=== PATIENT | male | born 1995 | race Caucasian/White ===

== ENCOUNTER 2016-06-04 22:55 | Emergency (ER) | payer SELFPAY ==
[~2016-06-04] VITALS: Ht 180.3 cm; Wt 77.7 kg
[2016-06-04 23:03] VITALS: Ht 180.3 cm; Wt 77.7 kg
[2016-06-05] MEDS ORDERED: HYDROCODONE/APAP (5/325) TAB PO ONE (01:00)
[2016-06-05] MEDS ORDERED: IBUP-1542 PO ×2 (01:08→03:09)
--- NOTE | 2016-06-05 01:09 | ERD ---
ER Documentation Chief Complaint Date/Time DATE: 06/05/16 TIME: 01:05 Chief Complaint FELL OFF HOVERBOARD AND INJURED LEFT ARM HPI 20-year-old male presents here in emergency department for complaints of left elbow pain after falling from a hoverboard date. Patient describes the pain as throbbing pain, is less than scale, is worse upon movement accompanied with swelling. Patient denies any numbness or tingling. Patient denies any deformity. Patient took ibuprofen for pain with mild relief. Patient denies any left wrist left shoulder pain. Patient denies any other joint pains. ROS All systems reviewed and are negative except as per history of present illness. Medications Home Meds Reported Medications Ibuprofen* (Motrin*) Unknown Strength Tab, PO Q6H Y for PAIN AND OR ELEVATED TEMP, #30 TAB 06/05/16 Allergies Allergies: Coded Allergies: Penicillins (Unverified Allergy, Intermediate, 06/05/16) PMhx/Soc Medical and Surgical Hx: pt denies Medical Hx, pt denies Surgical Hx FmHx Family History: No coronary disease, No diabetes, No other Physical Exam Vitals Vital Signs Date Time Temp Pulse Resp B/P Pulse Ox O2 Delivery O2 Flow Rate FiO2 06/04/16 23:03 97.2 61 16 127/6 99 Physical Exam GENERAL: The patient is well developed and appropriate for usual state of health, in no apparent distress. CHEST: Clear to auscultation bilaterally. There are no rales, wheezes or rhonchi. HEART: Regular rate and rhythm. No murmurs, clicks, rubs or gallops. No S3 or S4. ABDOMEN: Soft, nontender and nondistended. Good bowel sounds. No rebound or guarding. No gross peritonitis. No gross organomegaly or masses. No Bell sign or McBurney point tenderness. BACK: No midline or flank tenderness. EXTREMITIES: Tenderness on palpation on the left elbow with swelling noted, able to do full range of motion of the left wrist and left shoulder without any or suction, limitation of movement of the left shoulder because of pain and swelling. Equal pulses bilaterally. There is no peripheral clubbing, cyanosis or edema. No focal swelling or erythema. Full range of motion. Grossly neurovascularly intact. NEURO: Alert and oriented. Cranial nerves 2-12 intact. Motor strength in all 4 extremities with 5/5 strength. Sensation grossly intact. Normal speech and gait. SKIN: There is no apparent rash or petechia. The skin is warm and dry. HEMATOLOGIC AND LYMPHATIC: There is no evidence of excessive bruising or lymphedema. No gross cervical, axillary, or inguinal lymphadenopathy. Results 24 hrs Current Medications Medications (Trade) Dose Ordered Sig/Keshav Route PRN Reason Start Time Stop Time Status Last Admin Dose Admin Acetaminophen/ Hydrocodone Bitart ([place] (5/325)) 1 tab ONCE ONCE PO 06/05/16 01:00 06/05/16 01:01 DC 06/05/16 01:36 Patient was given medication for pain here in emergency department, after treatment, patient verbalized feeling much better. Patient's pain is improved. PROCEDURE: XR Elbow. CLINICAL INDICATION: Trauma. Pain. TECHNIQUE: AP, lateral and oblique views of the left elbow performed. COMPARISON: None. FINDINGS: No fracture or dislocation is identified. Bone mineralization is within normal limits. Joint relationships are maintained. There is a prominent posterior fat pad sign. IMPRESSION: No fracture or dislocation identified. Posterior fat pad sign compatible with joint fluid/hemarthrosis and is indicative of an occult fracture. RPTAT: [facility] .Aubrey Crane MD, MD Date Time Electronically viewed and signed by .Aubrey Crane MD, on 06/05/2016 02:46 .K/ CC: MILAN CORONADO NP After receiving patients xray report, a long arm splint was applied on the patients left arm. After application of the splint, patient has intact sensation and circulation on distal area of the affected joint. Patient does not complain of numbness or tingling after application of the splint. Patient tolerated procedure well. SLing was given to use afterwards Procedures/MDM Medical Decision Making: Patient's pain is most likely consistent with a elbow fracture. There is no suspicion for neurovascular compromise. Patient has intact sensation and circulation of the affected extremity. There is low suspicion for septic arthritis. Patient does not have any fever. Radiology exams of the affected area does not show any dislocation, noted posterior fat pad sign consistent with an occult elbow fracture. Disposition: Home. Patient is given prescription for ibuprofen for pain a [place] for severe pain. Patient was advised to elevate the affected area and apply ice on affected area. Patient was advised that if symptoms are worse, numbness, tingling, high fever, unable to move joint, worsening symptoms, to return to emergency department immediately. Otherwise, patient is advised to follow up with the primary care doctor in 5-7 days for reevaluation of symptoms. Follow- up with orthopedic surgeon within 5-7 days and repeat x-ray for further evaluation of symptoms. Departure Diagnosis: Primary Impression: Elbow fracture, left Encounter type: initial encounter Fracture type: closed Qualified Code: S42.402A - Elbow fracture, left, closed, initial encounter Condition: Stable Patient Instructions: Elbow Fracture Additional Instructions: Patient is given prescription for ibuprofen for pain a [place] for severe pain. Patient was advised to elevate the affected area and apply ice on affected area. Patient was advised that if symptoms are worse, numbness, tingling, high fever, unable to move joint, worsening symptoms, to return to emergency department immediately. Otherwise, patient is advised to follow up with the primary care doctor in 5-7 days for reevaluation of symptoms. Follow-up with orthopedic surgeon within 5-7 days and repeat x-ray for further evaluation of symptoms. MILAN CORONADO NP Jun 05, 2016 01:09
--- NOTE | 2016-06-05 02:46 | RADRPT ---
PROCEDURE: XR Elbow. CLINICAL INDICATION: Trauma. Pain. TECHNIQUE: AP, lateral and oblique views of the left elbow performed. COMPARISON: None. FINDINGS: No fracture or dislocation is identified. Bone mineralization is within normal limits. Joint relat ionships are maintained. There is a prominent posterior fat pad sign. IMPRESSION: No fracture or dislocation identified. Posterior fat pad sign compatible with joint fluid/hemarthro sis and is indicative of an occult fracture. RPTAT: [facility] .Aubrey Crane MD, Date Time Electronically viewed and signed by .Aubrey Crane MD, on 06/05/2016 02:46 .K/
[2016-06-05] MEDS ORDERED: HYDR-906 PO (03:09)
== END 2016-06-05 03:43 | disposition home or self-care (01) ==
LOC: FTE 22:55
DX: S42.402A Unspecified fracture of lower end of left humerus, initial encounter for closed fracture (principal); V00.131A Fall from skateboard, initial encounter; Y92.9 Unspecified place or not applicable